=== PATIENT | male | born 1965 | race Caucasian/White ===

== ENCOUNTER 2023-10-11 14:49 | Emergency (ER) | payer OTHER, SELFPAY ==
[2023-10-11 15:06] VITALS: BP 125/74
--- NOTE | 2023-10-11 16:01 | ED.GENMED ---
History of Present Illness
General
Chief Complaint: Prescription Refill
Source: patient
Exam Limitations: none
Time Seen by Provider: 10/11/23 15:29
Nursing documentation reviewed up to this point in time: agreed with
History of Present Illness
History of Present Illness:
57-year-old male presenting to the emergency department today with concerns of running out of his inhalers at home also does not have a primary care doctor. Denies any current symptoms.
Past History
Past History
ED Past Medical History: Other (GBS, Alcohol abuse, Diverticulitis)
ED Past Surgical History: Bowel resection
Social History
Tobacco: Smoker
Alcohol: Daily
Drug: Marijuana
Personal: Single
Living: with roommate
Employment: Employed (Construction)
Family History
Family History: Other (reviewed and noncontributory)
Review of Systems
Review of Systems
Allergies reviewed?: Yes
All Other Systems: ROS reviewed and negative except as documented in HPI and ROS
Phy Exam
Physical Exam
Physical Exam:
GENERAL: Alert , in no apparent distress
EYE: pupils equal and reactive
NECK: Supple, no significant adenopathy.
ENT: o/p clr, mmm.
CARDIAC: Regular rate and rhythm .
LUNGS: Clear breath sounds bilaterally, no acute respiratory distress, no wheezes/rales/rhonchi
ABDOMEN: Soft, without focal tenderness, no r/g, no cvat
NEUROLOGICAL: Alert and oriented, no focal neuro deficits
SKIN: Warm and dry, skin intact.
MUSCULOSKELETAL: No edema, well perfused.
PSYCH: Normal and appropriate interaction.
Course
Vital Signs
Initial and Last Documented VS:
Initial Vital Signs
Temp Pulse Resp BP Pulse Ox
98 F 95 16 125/74 97
10/11/23 15:06 10/11/23 15:06 10/11/23 15:06 10/11/23 15:06 10/11/23 15:06
Last Documented Vital Signs
Temp Pulse Resp BP Pulse Ox
98 F 95 16 125/74 97
10/11/23 15:06 10/11/23 15:06 10/11/23 15:06 10/11/23 15:06 10/11/23 15:06
MDM/Problems Addressed
MDM/Problems Addressed:
57-year-old male presenting to the emergency department for prescription refill. Patient seeking albuterol inhaler and daily inhaler. Patient without any symptoms currently appears well was written for the prescription and also given information
for primary care follow-up. Return precautions given.
*Critical Care Note
Total Time (30-74mins, 75-104mins- exclusive of procedures): Not Applicable
ED Attending Note
-
Portions of this chart may have been created with voice recognition software.� Occasional wrong word or��sound alike� substitutions may have occurred due to the inherent limitations of voice recognition software.
Discharge Plan
Departure
Patient Disposition: Home (Routine Discharge)
Date of Disposition: 10/11/23
Time of Disposition: 16:01
Patient with high blood pressure during this ER visit?: No
Condition: Good
Covid-19: Not Applicable
Discharge Problem:
Prescription refill
Prescriptions:
New
albuterol sulfate 90 mcg/actuation aerosol powdr breath activated
2 inh inhalation Q6H PRN (Reason: shortness of breath) Qty: 1 0RF
fluticasone propion-salmeterol 250-50 mcg/dose blister with device
1 inh inhalation BID Qty: 60 0RF
No Action
therapeutic multivitamin Tablet
1 tab PO DAILY@1200
thiamine HCl (vitamin B1) 100 mg Tablet
100 mg PO DAILY Qty: 0 0RF
nicotine 21 mg/24 hr Patch 24 Hour
21 mg transdermal DAILY Qty: 0 0RF
diltiazem HCl 120 mg Capsule,Extended Release 24hr
120 mg PO DAILY Qty: 30 0RF
folic acid 1 mg Tablet
1 mg PO DAILY Qty: 0 0RF
doxycycline hyclate 100 mg capsule
100 mg PO BID Qty: 20 0RF
Referrals:
[facility] [Provider Group]
[facility] [Provider Group]
NONE,* [Family Provider] -
Activity Restrictions/Additional Instructions:
You came to the emergency department today for prescription refill. Please take your prescribed medications. Return to the emergency department for any worsening, new or concerning symptoms. Please make sure you follow-up with your primary care
doctor.
Interventions
Interventions:
*Risk Screen - Suicide Last Done: 10/11/23 15:06
*General Assessment Last Done: 10/11/23 15:06
*Neglect/Abuse Screening Last Done: 10/11/23 15:06
ED- Fall Risk Assessment Last Done: 10/11/23 16:12
*ED COVID-19 Vaccine History Last Done: 10/11/23 16:12
*Nursing Disposition Last Done: 10/11/23 16:12
Discharge Date and Time
Discharge Date/Time: 10/11/23 16:13
Print Language: AMHARIC
== END 2023-10-11 16:13 | disposition home or self-care (01) ==
LOC: EMR 14:49
PROVIDERS: EMERGENCY PHYSICIAN Emergency Medicine
DX: Z76.0 Encounter for issue of repeat prescription (principal); F17.200 Nicotine dependence, unspecified, uncomplicated
CPT/HCPCS: 99282

== ENCOUNTER 2023-11-11 13:30 | Emergency (ER) | payer OTHER, SELFPAY ==
[2023-11-11 13:34] VITALS: BP 148/101
--- NOTE | 2023-11-11 14:11 | ED.GENMED ---
History of Present Illness
General
Chief Complaint: Prescription Refill
Source: patient
Time Seen by Provider: 11/11/23 14:00
History of Present Illness
History of Present Illness:
57yoM with a history of COPD and tobacco use presenting for a prescription refill. Patient does not have a PCP currently and only has one more dose of his Advair left. He is here requesting a refill for this. He has no complaints at this time. He
was seen in the ED on 10/11/23 for the same complaint.
Past History
Past History
ED Past Medical History: Other (GBS, Alcohol abuse, Diverticulitis)
ED Past Surgical History: Bowel resection
Social History
Tobacco: Smoker
Alcohol: Daily
Drug: Marijuana
Personal: Single
Living: with roommate
Employment: Employed (Construction)
Family History
Family History: Other (reviewed and noncontributory)
Phy Exam
General Physical Exam
General Presentation: well appearing and no apparent distress
General age: appears stated age
General Skin: warm and dry
General Habitus: normal
General Mental: alert
Cardiovascular Exam
Cardiovascular Exam: regular rate/rhythm
Pulmonary Exam
Pulmonary Exam: no respiratory distress, no rales, no rhonchi, generalized wheezing and other (Scant expiratory wheezes. Speaking in full sentences without difficulty. )
Skin Exam
Skin Exam: normal color and warm/dry
Psychiatric Exam
Psychiatric Exam: normal mood/affect
Course
Vital Signs
Initial and Last Documented VS:
Initial Vital Signs
Temp Pulse Resp BP Pulse Ox
98.0 F 101 16 148/101 98
11/11/23 13:34 11/11/23 13:34 11/11/23 13:34 11/11/23 13:34 11/11/23 13:34
Last Documented Vital Signs
Temp Pulse Resp BP Pulse Ox
98.0 F 101 16 148/101 98
11/11/23 13:34 11/11/23 13:34 11/11/23 13:34 11/11/23 13:34 11/11/23 13:34
MDM/Problems Addressed
Differential Diagnosis Includes:
57yoM here requesting an Advair refill. No complaints at this time. He has wheezing on lung exam but pulmonary effort is normal. Oxygen saturation 98% on room air. He declines neb treatment. Refill provided for Advair. Advied f/u with PCP. Patient
discharged in stable condition.
*Critical Care Note
Total Time (30-74mins, 75-104mins- exclusive of procedures): Not Applicable
ED Attending Note
-
Portions of this chart may have been created with voice recognition software.� Occasional wrong word or��sound alike� substitutions may have occurred due to the inherent limitations of voice recognition software.
Discharge Plan
Departure
Patient Disposition: Home (Routine Discharge)
Date of Disposition: 11/11/23
Time of Disposition: 14:12
Patient with high blood pressure during this ER visit?: Yes
Discharge Problem:
Prescription refill
Prescriptions:
New
fluticasone propion-salmeterol [Advair Diskus] 250-50 mcg/dose blister with device
1 inh inhalation BID Qty: 60 2RF
No Action
therapeutic multivitamin Tablet
1 tab PO DAILY@1200
thiamine HCl (vitamin B1) 100 mg Tablet
100 mg PO DAILY Qty: 0 0RF
nicotine 21 mg/24 hr Patch 24 Hour
21 mg transdermal DAILY Qty: 0 0RF
diltiazem HCl 120 mg Capsule,Extended Release 24hr
120 mg PO DAILY Qty: 30 0RF
folic acid 1 mg Tablet
1 mg PO DAILY Qty: 0 0RF
doxycycline hyclate 100 mg capsule
100 mg PO BID Qty: 20 0RF
albuterol sulfate 90 mcg/actuation aerosol powdr breath activated
2 inh inhalation Q6H PRN (Reason: shortness of breath) Qty: 1 0RF
fluticasone propion-salmeterol 250-50 mcg/dose blister with device
1 inh inhalation BID Qty: 60 0RF
Referrals:
[facility] [Provider Group]
Activity Restrictions/Additional Instructions:
Please follow-up with your family doctor.
Interventions
Interventions:
*Nursing Disposition Last Done: 11/11/23 14:37
Discharge Date and Time
Discharge Date/Time: 11/11/23 14:37
Print Language: OCCITAN
== END 2023-11-11 14:37 | disposition home or self-care (01) ==
LOC: EMR 13:30
PROVIDERS: EMERGENCY PHYSICIAN Emergency Medicine
DX: Z76.0 Encounter for issue of repeat prescription (principal); R06.2 Wheezing; R03.0 Elevated blood-pressure reading, without diagnosis of hypertension; J44.9 Chronic obstructive pulmonary disease, unspecified; K57.92 Diverticulitis of intestine, part unspecified, without perforation or abscess without bleeding; F17.200 Nicotine dependence, unspecified, uncomplicated; Z98.0 Intestinal bypass and anastomosis status
CPT/HCPCS: 99281

== ENCOUNTER 2024-06-16 11:52 | Emergency (ER) | payer OTHER, SELFPAY ==
[2024-06-16 11:55] VITALS: BP 164/100
[2024-06-16] MEDS: ADACEL 0.5 ML IM (13:10)
--- NOTE | 2024-06-16 13:15 | ED.SKININJ ---
HPI-Injury
General
Chief Complaint: Skin Surface Trauma
Source: patient
Exam Limitations: none
Time Seen by Provider: 06/16/24 12:54
Nursing documentation reviewed up to this point in time: agreed with
History of Present Illness-Injury
Initial Injury comments:
58-year-old male with no clinically significant past medical history states he cut his left thumb on a saws all at home about an hour prior to arrival. He is unsure of his last tetanus immunization.
Past History
Past History
ED Past Medical History: Other (GBS, Alcohol abuse, Diverticulitis)
ED Past Surgical History: Bowel resection
Social History
Tobacco: Smoker
Alcohol: Daily
Drug: Marijuana
Personal: Single
Living: with roommate
Employment: Employed (Construction)
Family History
Family History: Other (reviewed and noncontributory)
Review of Systems
Review of Systems
Allergies reviewed?: Yes
All Other Systems: ROS reviewed and negative except as documented in HPI and ROS
Skin: Reports other (Laceration distal left thumb)
Neurological: Denies numbness
Skin Exam
Avulsion
Radial aspect distal left thumb:
Type of avulsion injury: avulsion (1.5 long, 0.5 wide, skin avulsionon skin beside the nail)
Any active bleeding?: low grade venous oozing
Distal skin color and temperature: normal-warm & good color
Normal distal neurovascular exam: Yes
Phy Exam
Physical Exam
Physical Exam:
PHYSICAL EXAMINATION:
General: no apparent distress, not acutely ill
Neuro: alert and oriented.
Psychiatric: well kept. interactive and cooperative
Musculoskeletal: Moves with ease. Full ROM of thumb, no bony tenderness
Skin: Warm, pink.
Course
Orders/Labs/Results
Orders:
Orders
06/16/24 13:03
Tetanus/Diphth/Acelpertussis [Adacel] 0.5 ml IM .ONCE ONE
Vital Signs
Initial and Last Documented VS:
Initial Vital Signs
Temp Pulse Resp BP Pulse Ox
98 F 89 16 164/100 95
06/16/24 11:55 06/16/24 11:55 06/16/24 11:55 06/16/24 11:55 06/16/24 11:55
Last Documented Vital Signs
Temp Pulse Resp BP Pulse Ox
98 F 89 16 164/100 95
06/16/24 11:55 06/16/24 11:55 06/16/24 11:55 06/16/24 11:55 06/16/24 11:55
MDM/Problems Addressed
MDM/Problems Addressed:
58-year-old male with no clinically significant past medical history states he cut his left thumb on a saws all at home about an hour prior to arrival. He is unsure of his last tetanus immunization.
Tdap updated
*Critical Care Note
Total Time (30-74mins, 75-104mins- exclusive of procedures): Not Applicable
ED Attending Note
-
Portions of this chart may have been created with voice recognition software.� Occasional wrong word or��sound alike� substitutions may have occurred due to the inherent limitations of voice recognition software.
Discharge Plan
Departure
Patient Disposition: Home (Routine Discharge)
Date of Disposition: 06/16/24
Time of Disposition: 13:18
Patient with high blood pressure during this ER visit?: Yes
Condition: Good
Discharge Problem:
Avulsion of skin of left thumb
Instructions: Wound Care (DC)
Prescriptions:
No Action
therapeutic multivitamin Tablet
1 tab PO DAILY@1200
thiamine HCl (vitamin B1) 100 mg Tablet
100 mg PO DAILY Qty: 0 0RF
nicotine 21 mg/24 hr Patch 24 Hour
21 mg transdermal DAILY Qty: 0 0RF
diltiazem HCl 120 mg Capsule,Extended Release 24hr
120 mg PO DAILY Qty: 30 0RF
folic acid 1 mg Tablet
1 mg PO DAILY Qty: 0 0RF
doxycycline hyclate 100 mg capsule
100 mg PO BID Qty: 20 0RF
albuterol sulfate 90 mcg/actuation aerosol powdr breath activated
2 inh inhalation Q6H PRN (Reason: shortness of breath) Qty: 1 0RF
fluticasone propion-salmeterol 250-50 mcg/dose blister with device
1 inh inhalation BID Qty: 60 0RF
fluticasone propion-salmeterol [Advair Diskus] 250-50 mcg/dose blister with device
1 inh inhalation BID Qty: 60 2RF
Referrals:
Your, doctor [Other] - As needed
UNKNOWN - PT DOES,NOT KNOW [Family Provider] -
Activity Restrictions/Additional Instructions:
As we discussed, keep the dressing on until , keep it clean and dry
On you may remove the dressing, you may have to soak the Gelfoam off, cleanse the wound with soap and water, dry well, apply antibiotic and Band-Aid and use the aluminum finger splint as needed for protection. Do this daily until the wound
is healed, it may take 2 to 3 weeks.
Interventions
Interventions:
*Risk Screen - Suicide Last Done: 06/16/24 11:57
*General Assessment Last Done: 06/16/24 13:36
*Neglect/Abuse Screening Last Done: 06/16/24 11:57
*ED- Fall Risk Assessment Last Done: 06/16/24 13:36
*ED COVID-19 Vaccine History Last Done: 06/16/24 13:36
*Nursing Disposition Last Done: 06/16/24 13:36
ED-Skin Assessment Last Done: 06/16/24 12:19
Discharge Date and Time
Discharge Date/Time: 06/16/24 13:37
Print Language: SPANISH
== END 2024-06-16 13:37 | disposition home or self-care (01) ==
LOC: EMR 11:52
PROVIDERS: EMERGENCY PHYSICIAN Emergency Medicine
DX: S61.002A Unspecified open wound of left thumb without damage to nail, initial encounter (principal); W27.0XXA Contact with workbench tool, initial encounter; Z23 Encounter for immunization; F17.200 Nicotine dependence, unspecified, uncomplicated
CPT/HCPCS: 99282; 90471; 90715

== ENCOUNTER 2024-09-30 10:54 | Emergency (ER) | payer OTHER, SELFPAY ==
[2024-09-30 10:57] VITALS: BP 162/96
--- NOTE | 2024-09-30 11:52 | ED.GENMED ---
History of Present Illness
<Jodi Leary PA-C - Last Filed: 09/30/24 23:37>
General
Chief Complaint: Skin Problem
Source: patient
Exam Limitations: none
Time Seen by Provider: 09/30/24 11:34
Nursing documentation reviewed up to this point in time: agreed with
History of Present Illness
History of Present Illness:
Patient is a 58-year-old male who presents to the emergency department for evaluation of rash. Patient states he has noticed itchy red spots on his bilateral arms over the past few days. This morning he noticed 1 red spot on his right fifth finger
that was very painful. His roommate has not experienced any rash. Patient denies any fever or chills. He denies any chest pain, shortness of breath, or abdominal pain.
Patient was recently in a alcohol detox center although returned home over 2 weeks ago.
He denies any history of past IV drug use.
Past History
<Jodi Leary PA-C - Last Filed: 09/30/24 23:37>
Past History
ED Past Medical History: Other (GBS, Alcohol abuse, Diverticulitis)
ED Past Surgical History: Bowel resection
Social History
Tobacco: Smoker
Alcohol: Daily
Drug: Marijuana
Personal: Single
Living: with roommate
Employment: Employed (Construction)
Family History
Family History: Other (reviewed and noncontributory)
Review of Systems
<Jodi Leary PA-C - Last Filed: 09/30/24 23:37>
Review of Systems
Allergies reviewed?: Yes
All Other Systems: ROS reviewed and negative except as documented in HPI and ROS
Phy Exam
<Jodi Leary PA-C - Last Filed: 09/30/24 23:37>
Physical Exam
Physical Exam:
Vitals: Hypertensive, otherwise vital signs stable. Afebrile
General: Patient is well appearing, no acute distress. Nontoxic-appearing
Skin: Few scattered erythematous excoriated papules on right upper arm and left forearm. No involvement of webspaces, oral mucosa, or soles of feet. No vesicles, surrounding erythema, or drainage 1 erythematous and tender papule on medial aspect
of right fifth finger with surrounding edema. No other rash on trunk or lower extremities.
Head: Normocephalic, atraumatic
Throat: Protecting airway
Neck: Normal ROM, no cervical spine tenderness
Cardiac: Regular rate and rhythm. No murmur
Pulm: No apparent respiratory distress. Lungs clear bilateral
Abdomen: Nondistended. Soft and nontender
Extremities: No evidence of cyanosis or edema. Erythematous, tender papule on right fifth digit. Normal capillary refill and full range of motion in all digits of right hand.
Neuro: Grossly intact
Psychiatric: Normal affect.
Course
<Jodi Leary PA-C - Last Filed: 09/30/24 23:37>
Orders/Labs/Results
Orders:
Orders
09/30/24 11:56
Cephalexin Monohydrate [Keflex] 500 mg PO NOW STA
09/30/24 12:07
Basic Metabolic Panel Urgent
Complete Blood Count/With Diff Urgent
Abnormal Lab Results
09/30/24
12:07
RBC 4.58 L 10^6/uL
(4.70-6.10)
MCV 100.4 H fL
(80.0-94.0)
MCH 35.8 H pg
(27.0-31.0)
Absolute Monos (auto) 0.7 H 10^3/uL
(0.1-0.6)
Lymphocytes % 17.0 L %
(20.5-51.1)
Chloride 110 H mmol/L
(98-107)
BUN 7 L mg/dl
(20)
Creatinine 0.6 L mg/dL
(0.7-1.3)
09/30/24 12:07
09/30/24 12:07
Vital Signs
Initial and Last Documented VS:
Initial Vital Signs
Temp Pulse Resp BP Pulse Ox
98.1 F 94 16 162/96 99
09/30/24 10:57 09/30/24 10:57 09/30/24 10:57 09/30/24 10:57 09/30/24 10:57
Last Documented Vital Signs
Temp Pulse Resp BP Pulse Ox
98.1 F 94 16 162/96 99
09/30/24 10:57 09/30/24 10:57 09/30/24 10:57 09/30/24 10:57 09/30/24 11:56
<Otilio Fonseca MD - Last Filed: 09/30/24 12:00>
Orders/Labs/Results
Orders:
Orders
09/30/24 11:56
Cephalexin Monohydrate [Keflex] 500 mg PO NOW STA
09/30/24 12:07
Basic Metabolic Panel Urgent
Complete Blood Count/With Diff Urgent
Abnormal Lab Results
09/30/24
12:07
RBC 4.58 L 10^6/uL
(4.70-6.10)
MCV 100.4 H fL
(80.0-94.0)
MCH 35.8 H pg
(27.0-31.0)
Absolute Monos (auto) 0.7 H 10^3/uL
(0.1-0.6)
Lymphocytes % 17.0 L %
(20.5-51.1)
Chloride 110 H mmol/L
(98-107)
BUN 7 L mg/dl
(12-26)
Creatinine 0.6 L mg/dL
(0.7-1.3)
09/30/24 12:07
09/30/24 12:07
Vital Signs
Initial and Last Documented VS:
Initial Vital Signs
Temp Pulse Resp BP Pulse Ox
98.1 F 94 16 162/96 99
09/30/24 10:57 09/30/24 10:57 09/30/24 10:57 09/30/24 10:57 09/30/24 10:57
Last Documented Vital Signs
Temp Pulse Resp BP Pulse Ox
98.1 F 94 16 162/96 99
09/30/24 10:57 09/30/24 10:57 09/30/24 10:57 09/30/24 10:57 09/30/24 11:56
<Jodi Leary PA-C - Last Filed: 09/30/24 23:37>
MDM/Problems Addressed
Differential Diagnosis Includes:
Not limited to: Urticaria, contact dermatitis, bug bite, cellulitis, less likely scabies
MDM/Problems Addressed:
58 y.o male with painful bump to right finger and itchy rash to bilateral upper arms. No know contact allergens or new medications. No systemic signs of infection. Vitals and physical exam as above. These appear to be two separate processes. Rash on
upper arm pruritic and nature and has appearance of possible bug bites. Finger bump seems infectious in nature however no evidence of deeper infection. Given hx of ETOH abuse labs were obtained without clinically significant abnormalities - no
thrombocytopenia. Will give HC 2.5% cream for arm rash and start patient on keflex for suspected infection of finger. Rash not consistent with rabies or drug reaction. Low suspicion for MRSA. Do not feel systemic corticosteroids indicated at this
time. He denies any current rehab/detox services as he already has these resources. Return precautions discussed.
Chronic conditions affecting care:
Alcohol abuse
Acute Exacerbation and/or Progression of Chronic Illness:
N/A
<Jodi Leary PA-C - Last Filed: 09/30/24 23:37>
*Pulse Oximetry
SaO2: 99
Oxygen Mode of Delivery: Room air
Patient hypoxic: no
*EKG
Interpreted by ED Provider?: NA
*Trade Clerk Interpretation
Rate: Trade Clerk- N/A
*Critical Care Note
Total Time (30-74mins, 75-104mins- exclusive of procedures): Not Applicable
ED Attending Note
<Jodi Leary PA-C - Last Filed: 09/30/24 23:37>
-
Portions of this chart may have been created with voice recognition software.� Occasional wrong word or��sound alike� substitutions may have occurred due to the inherent limitations of voice recognition software.
<Otilio Fonseca MD - Last Filed: 09/30/24 12:00>
ED Attending Note
Patient seen and examined by attending physician: Yes
I performed the substantive portion of visit, reviewed & personally made and approve the management plan that is documented in note by myself or DONALD.: Yes
ED Attending Note:
58-year-old male complaining of itchy rash to his neck and arms. Also a painful bump on his hand. No fever chills no other complaints. History of EtOH use.
On exam patient is nontoxic in no distress. He has 2 discrete rashes. #1 is very discrete pruritic what appear to be insect bites to his arm and neck. These are mildly welt like and swollen. There is no erythema there is no drainage there is no
vesicle. He has no petechia or purpura. Second rash is a discrete 1 cm ecchymotic nodule to the lateral hand. This is very painful to the touch.
This second rash appears likely infectious. Nothing to support systemic infection. With his EtOH history will check a CBC to check platelets and basic labs. Cover with antibiotics. Other rash has more of an insect bite pruritic rash.
Hydrocortisone cream. Nothing intertriginous to suspect scabies.
Discharge Plan
Departure
Patient Disposition: Home (Routine Discharge)
Date of Disposition: 09/30/24
Time of Disposition: 12:59
Patient with high blood pressure during this ER visit?: Yes
Discharge Problem:
Finger infection, Insect bites
Instructions: Cellulitis (Skin Infection), Adult (DC), Insect bites and stings - ED discharge instructions, BLOOD PRESSURE
Prescriptions:
New
hydrocortisone 2.5 % cream
1 applic topical BID Qty: 28 0RF
Rx Instructions:
Apply to affected bites BID x 1-2 weeks. Avoid face, axilla, and groin
cephalexin 500 mg capsule
500 mg PO QID 7 Days Qty: 28 0RF
No Action
therapeutic multivitamin Tablet
1 tab PO DAILY@1200
thiamine HCl (vitamin B1) 100 mg Tablet
100 mg PO DAILY Qty: 0 0RF
nicotine 21 mg/24 hr Patch 24 Hour
21 mg transdermal DAILY Qty: 0 0RF
diltiazem HCl 120 mg Capsule,Extended Release 24hr
120 mg PO DAILY Qty: 30 0RF
folic acid 1 mg Tablet
1 mg PO DAILY Qty: 0 0RF
doxycycline hyclate 100 mg capsule
100 mg PO BID Qty: 20 0RF
albuterol sulfate 90 mcg/actuation aerosol powdr breath activated
2 inh inhalation Q6H PRN (Reason: shortness of breath) Qty: 1 0RF
fluticasone propion-salmeterol 250-50 mcg/dose blister with device
1 inh inhalation BID Qty: 60 0RF
fluticasone propion-salmeterol [Advair Diskus] 250-50 mcg/dose blister with device
1 inh inhalation BID Qty: 60 2RF
Referrals:
Tono Robins PA [Family Provider, Family Practice] - Follow up in 5-7 days
Activity Restrictions/Additional Instructions:
RETURN TO THE EMERGENCY DEPARTMENT WITH ANY FEVER, CHILLS, SIGNIFICANT WORSENING OR RASH, WORSENING SWELLING, PAIN, REDNESS OF AFFECTED FINGER, LIMITED RANGE OF MOTION IN FINGER, OR ANY OTHER CONCERNS
- As discussed�your basic lab work showed no acute abnormalities while in the emergency department.
- I suspect you likely have 2 separate rashes today. The area on your finger appears infected. You should take the course of antibiotics 4 times a day for the next week. Monitor this closely and return with any evidence of significant worsening
or failure to improve. For the lesions on your arms -you can apply hydrocortisone cream twice a day for the next 1 to 2 weeks as needed
-Follow-up with primary care for further evaluation/management and to ensure that symptoms are improving
-Please continue to follow-up with your alcohol rehabilitation program and return with any concerns
Monitor your symptoms closely and return to the emergency department with any acute worsening/new symptoms or any other concerns
Interventions
Interventions:
*Nursing Disposition Last Done: 09/30/24 14:43
ED-Skin Assessment Last Done: 09/30/24 13:00
Discharge Date and Time
Discharge Date/Time: 09/30/24 14:43
Print Language: KAZAKH
[2024-09-30] MEDS: KEFLEX 500 MG PO (12:07)
[2024-09-30 12:17] LABS: % Basophils 1.3 % (0-2); % Eosinophils 1.6 % (0-6); % Immature Granulocytes 0.4 % (0-0.5); % Monocytes 9.3 % (1.7-9.3); % Neutrophils 70.4 % (42.2-75.2); Absolute Basophils 0.1 10^3/uL (0-0.2); Absolute Eosinophils 0.1 10^3/uL (0-0.7); Absolute Lymphocytes 1.2 10^3/uL (1.2-3.4); Absolute Monocytes 0.7 10^3/uL (0.1-0.6); Hemoglobin 16.4 g/dL (13.0-18.0); Mean Corp Hgb Conc. 35.7 g/dL (33.0-37.0); Mean Corpuscular Hgb 35.8 pg (27.0-31.0); Mean Corpuscular Volume 100.4 fL (80.0-94.0); Mean Platelet Volume 8.8 fL (7.4-10.4); Nucleated Red Blood Cells % 0 % (-); Platelet Count 338 10^3/uL (130-400); Red Blood Cell Count 4.58 10^6/uL (4.70-6.10); Red Cell Dist. Width 11.8 % (11.5-14.5); White Blood Cell Count 7.1 10^3/uL (4.8-10.8)
[2024-09-30 12:47] LABS: Blood Urea Nitrogen 7 mg/dl (9-20); Calcium 9.9 mg/dl (8.4-10.2); Carbon Dioxide 22 mmol/L (22-30); Chloride 110 mmol/L (98-107); Glucose 99 mg/dl (70-99); Potassium 4.9 mmol/L (3.5-5.1); Sodium 140 mmol/L (135-145); eGFR > 60.00
== END 2024-09-30 14:43 | disposition home or self-care (01) ==
LOC: EMR 10:54
PROVIDERS: Physician Assistant; EMERGENCY PHYSICIAN Emergency Medicine; FAMILY PHYSICIAN Physician Assistant
DX: L08.9 Local infection of the skin and subcutaneous tissue, unspecified (principal); W57.XXXA Bitten or stung by nonvenomous insect and other nonvenomous arthropods, initial encounter; F10.10 Alcohol abuse, uncomplicated; F17.200 Nicotine dependence, unspecified, uncomplicated
CPT/HCPCS: 99283; 80048; 85025

== ENCOUNTER 2025-01-12 12:49 | Emergency (ER) | payer OTHER, SELFPAY ==
[2025-01-12 12:54] VITALS: BP 153/89
[2025-01-12 13:36] LABS: COVID-19 Antigen Negative (Negative)
== END 2025-01-12 14:48 | disposition left against medical advice (07) ==
LOC: EMR 12:49
PROVIDERS: EMERGENCY PHYSICIAN Emergency Medicine
DX: R05.9 Cough, unspecified (principal); Z11.52 Encounter for screening for COVID-19; Z53.21 Procedure and treatment not carried out due to patient leaving prior to being seen by health care provider
CPT/HCPCS: 87502; 87811